=== PATIENT | female | born 1975 | race Caucasian/White ===

== ENCOUNTER 2019-06-06 12:57 | Emergency (ER) | payer SELFPAY ==
[2019-06-06] MEDS ORDERED: SODIUM CHLORIDE 0.9% (FLUSH) 10 ML SYG IV PRN (13:20)
[2019-06-06] MEDS ORDERED: ONDANSETRON INJ 4 MG/2 ML VIAL IV ONE (13:20)
[2019-06-06] MEDS ORDERED: KETOROLAC TROMETHAMINE INJ 30 MG/ML VIAL IV ONE (13:22)
[2019-06-06] MEDS ORDERED: FAMOTIDINE IV PREMIX 20 MG in PREMIX BAG 1 BAG IVPB ONE (13:22)
--- NOTE | 2019-06-06 13:31 | ED.PDOC ---
History of Present Illness - General Chief Complaint: Chest Pain/NV Stated Complaint: chest pain Time Seen by Provider: 06/06/19 13:19 - History of Present Illness Initial Comments: c/o having chest pain since this morning , 01/13 sharp , non radiating , on the L side , no nausea or vomiting pt also c/o migraine headaches for weeks intermittent , light and noise bothers c/o having lower backache since 3 days, no fever or chills , no numbness or radiation in legs Allergies/Adverse Reactions: Allergies NO KNOWN ALLERGY Allergy (Verified 06/06/19 13:10) Home Medications: Ambulatory Orders Naproxen [Naprosyn] 500 mg PO BID #10 tab 06/06/19 RX: Baclofen 20 mg PO TID #12 tab 06/06/19 Sulfa/Trimeth 800/160 (Ds) Tab [Bactrim DS] 1 tablet PO BID 06/06/19 Review of Systems - Review of Systems Constitutional: States: no symptoms reported EENTM: States: no symptoms reported Respiratory: States: no symptoms reported Cardiology: States: see HPI Gastrointestinal/Abdominal: States: no symptoms reported Genitourinary: States: no symptoms reported Musculoskeletal: States: see HPI Skin: States: no symptoms reported Neurological: States: headache Endocrine: States: no symptoms reported Hematologic/Lymphatic: States: no symptoms reported Past Medical History (General) - Patient Medical History Hx Stroke: Yes - TIA Hx Cardiac Disorders: Yes Hx Congestive Heart Failure: No Hx Hypertension: Yes Hx Diabetes: Yes - Vaccination History Hx Influenza Vaccination: No - Social History Hx Tobacco Use: No Family Medical History - Family History Mother Family History: Unknown Living Status: Unknown Physical Exam - Physical Exam General Appearance: Alert, Comfortable Eyes, Ears, Nose, Throat Exam: PERRL/EOMI, normal ENT inspection Neck: non-tender, full range of motion, supple, normal inspection Respiratory: lungs clear, normal breath sounds, no respiratory distress, no accessory muscle use Cardiovascular/Chest: regular rate, rhythm, no edema, no gallop Gastrointestinal/Abdominal: non tender, soft Neurologic: no motor/sensory deficits, alert, normal mood/affect, oriented x 3 Skin Exam: normal color Lymphatic: no adenopathy Progress - Progress Progress: 06/06/19 17:20 06/06/19 13:15 EKG STAT 06/06/19 13:20 Telemetry .ONCE Sodium Chloride 0.9% (Flush) [Saline Flush Syringe] 10 ml IV PRN PRN Pulse Ox Stat 06/06/19 13:21 URINALYSIS Stat 06/06/19 16:58 TROPONIN-I Stat Laboratory Results WBC 13.3 K/mm3 (4.8-10.8) H 06/06/19 13:20 RBC 4.09 M/mm3 (4.20-5.40) L 06/06/19 13:20 Hgb 9.3 gm/dL (12.0-16.0) L 06/06/19 13:20 Hct 29.1 % (36.0-47.0) L 06/06/19 13:20 MCV 71.2 fl (81.0-99.0) L 06/06/19 13:20 MCH 22.7 pg (27.0-31.0) L 06/06/19 13:20 MCHC 31.8 g/dL (33.0-37.0) L 06/06/19 13:20 RDW 16.9 % (11.5-14.5) H 06/06/19 13:20 Plt Count 329 K/mm3 (130-400) 06/06/19 13:20 MPV 7.9 fl (7.40-10.4) 06/06/19 13:20 Absolute Neuts (auto) 11.20 K/uL (1.8-6.8) H 06/06/19 13:20 Absolute Lymphs (auto) 1.10 K/uL (1.0-3.4) 06/06/19 13:20 Absolute Monos (auto) 0.90 K/uL (0.2-0.8) H 06/06/19 13:20 Absolute Eos (auto) 0.00 K/uL (0.0-0.4) 06/06/19 13:20 Absolute Basos (auto) 0.10 K/uL (0.0-0.1) 06/06/19 13:20 Neutrophils % 84.7 % (42.0-78.0) H 06/06/19 13:20 Lymphocytes % 8.2 % (20.0-50.0) L 06/06/19 13:20 Monocytes % 6.5 % (2.0-9.0) 06/06/19 13:20 Eosinophils % 0.2 % (1.0-5.0) L 06/06/19 13:20 Basophils % 0.4 % (0.0-2.0) 06/06/19 13:20 PT 10.0 SECONDS (9.0-10.9) 06/06/19 13:20 INR 1.00 (0.9-1.15) 06/06/19 13:20 PTT (SP) 24.0 SECONDS (21.8-31.6) 06/06/19 13:20 D-Dimer, Quantitative 0.35 mg/L FEU (0-0.49) 06/06/19 13:20 Sodium 131 mmol/L (135-145) L 06/06/19 13:20 Potassium 3.9 mmol/L (3.6-5.0) 06/06/19 13:20 Chloride 99 mmol/L (101-111) L 06/06/19 13:20 Carbon Dioxide 23 mmol/L (21-31) 06/06/19 13:20 Anion Gap 12.9 (12-18) 06/06/19 13:20 BUN < 5 mg/dL (7-18) L 06/06/19 13:20 Creatinine 0.41 mg/dL (0.6-1.3) L 06/06/19 13:20 BUN/Creatinine Ratio 12.2 (10-20) 06/06/19 13:20 Random Glucose 256 mg/dL (70-105) H 06/06/19 13:20 Serum Osmolality 268.7 mOsm/L (275-295) L 06/06/19 13:20 Lactic Acid 1.1 mmol/L (0.5-2.2) 06/06/19 13:20 Calcium 8.9 mg/dL (8.4-10.2) 06/06/19 13:20 Magnesium 1.8 mg/dL (1.8-2.5) 06/06/19 13:20 Total Bilirubin 0.7 mg/dL (0.2-1.0) 06/06/19 13:20 Direct Bilirubin 0.2 mg/dL (0-0.2) 06/06/19 13:20 Indirect Bilirubin 0.5 mg/dL (0.2-0.8) 06/06/19 13:20 AST 15 IU/L (10-42) 06/06/19 13:20 ALT 11 IU/L (10-60) 06/06/19 13:20 Alkaline Phosphatase 79 IU/L (42-121) 06/06/19 13:20 Creatine Kinase 24 IU/L (26-140) L 06/06/19 13:20 CK-MB (CK-2) 0.7 ng/mL (0.0-4.4) 06/06/19 13:20 CK-MB (CK-2) % 2.50 % (0.0-4.3) 06/06/19 13:20 Troponin I < 0.02 ng/mL (0.01-0.05) 06/06/19 13:20 B-Natriuretic Peptide 80.7 pg/ml (0-100) 06/06/19 13:20 Serum Total Protein 7.2 gm/dL (6.4-8.2) 06/06/19 13:20 Albumin 3.5 g/dl (3.2-5.5) 06/06/19 13:20 - EKG/XRAY/CT EKG: Sinus, no ST T wave changes Departure - Departure Clinical Impression: Chest pain, Migraine, Back pain, URI (upper respiratory infection) Time of Disposition: 17:17 Disposition: Discharge to Home or Self Care Departure Forms: ED Discharge - Pt. Copy, Patient Portal Self Enrollment Instructions: DI for Chest Pain Diet: resume usual diet Activity: increase activity as tolerated, walking as tolerated Prescriptions: RX: Baclofen 20 mg PO TID #12 tab Naproxen [Naprosyn] 500 mg PO BID #10 tab Home Medications: Ambulatory Orders Naproxen [Naprosyn] 500 mg PO BID #10 tab 06/06/19 RX: Baclofen 20 mg PO TID #12 tab 06/06/19 Sulfa/Trimeth 800/160 (Ds) Tab [Bactrim DS] 1 tablet PO BID 06/06/19 Additional Instructions: Follow up PCP in 1-2 days
[2019-06-06] MEDS ORDERED: FAMOTIDINE IV PREMIX 50 ML IVPB ONE (14:04)
--- NOTE | 2019-06-06 14:18 | RAD ---
EXAM DESCRIPTION: Chest,1 View CLINICAL HISTORY: 43 years Female, sob COMPARISON: None. TECHNIQUE: AP portable chest. FINDINGS/IMPRESSION: Mild central pulmonary vascular congestion. Left basilar subsegmental atelectasis. No focal consolidation, significant pneumothorax or pleural effusion seen. The heart is normal in size. No acute osseous abnormality. Electronically signed by: Steve Fatima DO 06/06/2019 2:16 PM [employer]
--- NOTE | 2019-06-06 17:10 | CT ---
PROCEDURE: CT Lumbar Spine CLINICAL HISTORY: 43 years Female pain TECHNIQUE: Contiguous axial CT images obtained through the lumbar spine without IV contrast. Coronal and sagittal reformatted images also provided. This CT exam was performed according to our departmental dose-optimization program, which includes one or more of the following dose reduction techniques: automated exposure control, adjustment of the mA and/or kV according to patient size, and/or use of iterative reconstruction technique. COMPARISON: No prior exams provided for comparison. FINDINGS: The lumbar spine demonstrates normal alignment without acute fracture or subluxation. Vertebral body heights are preserved without aggressive osseous lesion. There is mild lower lumbar degenerative disc disease and facet arthrosis. Mild degenerative changes at the sacroiliac joints. At T11-L3, there is no central canal or neural foraminal stenosis. At L3-L4, there is a mild diffuse disc bulge with mild bilateral facet arthrosis resulting in mild bilateral neural foraminal stenosis. At L4-L5, there is a mild diffuse disc bulge with mild bilateral facet arthrosis resulting in mild central canal stenosis with mild bilateral neural foraminal stenosis. At L5-S1, there is a central disc protrusion with mild bilateral facet arthrosis. Indentation of the ventral aspect of the thecal sac. No neural foraminal stenosis. No acute paraspinal soft tissue abnormality. Lobulated cystic focus in the pelvis is incompletely imaged. While this could represent a somewhat atypical appearance of the urinary bladder, a pelvic cystic mass is not excluded. IMPRESSION: No acute lumbar spine injury. Multilevel lower lumbar degenerative changes. Incompletely imaged cystic focus in the pelvis could represent an atypical appearance of the urinary bladder or a pelvic cystic mass. Follow-up pelvic ultrasound is recommended. Electronically signed by: Homa Chauhan MD 06/06/2019 5:09 PM [facility] [[email or web address]]
[2019-06-06] MEDS ORDERED: IBUPROFEN 200 MG TAB PO ONE ×2 (17:56→18:05)
[2019-06-06] MEDS ORDERED: SODIUM CHLORIDE 0.9% 1000ML 1,000 ML IVS ONE (18:57)
[2019-06-06] MEDS ORDERED: cefTRIAXone SODIUM 1 GM in SODIUM CHL 0.9% 50ML MIN-BAG+ 50 ML IVPB ONE (18:57)
[2019-06-06] MEDS ORDERED: HYDROmorphone HCL INJ 2 MG/ML VIAL IV ONE (18:58)
[2019-06-06] MEDS ORDERED: cefTRIAXone SODIUM 1 GM VIAL ONE (19:11)
[2019-06-06] MEDS ORDERED: SODIUM CHL 0.9% 50ML MIN-BAG+ 50 ML IVPB ONE (19:11)
--- NOTE | 2019-06-06 19:42 | CT ---
EXAM: CT Head Without Intravenous Contrast CLINICAL HISTORY: The patient is 43 years old and is Female; headaches TECHNIQUE: Axial computed tomography images of the head/brain without intravenous contrast. Sagittal and coronal reformatted images were created and reviewed. This CT exam was performed using one or more of the following dose reduction techniques: automated exposure control, adjustment of the mA and/or kV according to patient size, and/or use of iterative reconstruction technique. COMPARISON: No relevant prior studies available. FINDINGS: Brain: Unremarkable. No hemorrhage. No significant white matter disease. No edema. Ventricles: Unremarkable. No ventriculomegaly. Bones/joints: Unremarkable. No acute fracture. Soft tissues: Unremarkable. Sinuses: Unremarkable as visualized. No acute sinusitis. Mastoid air cells: Unremarkable as visualized. No mastoid effusion. IMPRESSION: No acute intracranial findings. Electronically signed by: Tab Fuentes MD 06/06/2019 7:41 PM [facility]
[2019-06-06 20:58] VITALS: O2SAT 94
[2019-06-06 21:04] VITALS: BP 108/63; TEMP 99.1
== END 2019-06-06 21:10 | disposition home or self-care (01) ==
LOC: ER 12:57
DX: R07.9 Chest pain, unspecified (principal); G43.909 Migraine, unspecified, not intractable, without status migrainosus; M54.5 Low back pain; J06.9 Acute upper respiratory infection, unspecified; I10 Essential (primary) hypertension; E11.9 Type 2 diabetes mellitus without complications; I51.9 Heart disease, unspecified; Z86.73 Personal history of transient ischemic attack (TIA), and cerebral infarction without residual deficits
CPT/HCPCS: 36415; 70450; 71045; 72131; 80048; 80076; 81001; 82550; 82553; 83605; 83880; 84484; 85025; 85379; 85610; 85730; 87502; 93005; 94760; J0696; J1170; J1885; J2405; J3490; J7030; J7050